=== PATIENT | female | born 1955 | race Caucasian/White ===

== ENCOUNTER 2017-11-14 06:39 | Day surgery (SDC) | payer BC ==
[2017-11-07 12:39] VITALS: BMI 23.8
[2017-11-14 07:25] LABS: BASO # 0.09 K/mm3 (0.0-2.0); BASO % 1.5 % (0.0-3.0); EOS # 0.2 (0.0-0.7); EOS % 3.1 % (1.5-5.0); GRAN # 2.38 (1.4-6.5); GRAN % 40.8 % (50.0-68.0); HEMOGLOBIN 14.1 g/dL (12.0-16.0); LYMPH # 2.8 (1.2-3.4); LYMPH % 47.1 % (22.0-35.0); MEAN CELL VOLUME 94.7 fl (80.0-105.0); MEAN CORPUSCULAR HEMOGLOBIN 32.8 pg (25.0-35.0); MEAN CORPUSCULAR HGB CONC 34.6 g/dl (31.0-37.0); MEAN PLATELET VOLUME 9.1 fl (7.0-11.0); MONO # 0.4 (0.1-0.6); MONO % 7.5 % (1.0-6.0); RBC 4.3 10^6/uL (3.5-6.1); RED CELL DISTRIBUTION WIDTH 12.2 % (11.5-14.5); WHITE BLOOD COUNT 5.8 10^3/ul (4.5-11.0)
[2017-11-14 07:28] VITALS: RESP 18
[2017-11-14 07:33] LABS: INR 0.96 (0.93-1.08); PARTIAL THROMBOPLASTIN TIME 28.8 Seconds (25.1-36.5)
[2017-11-14] MEDS ORDERED: Iodixanol 320 MG/ML 200 ML BOTTLE IV ONE (07:48)
[2017-11-14] MEDS ORDERED: Nitroglycerin 50mg in D5W 50 MG/250 ML BOTTLE IV ONE (07:48)
[2017-11-14] MEDS ORDERED: Iodixanol 320 MG/ML 100 ML BOTTLE IV ONE (07:48)
[2017-11-14] MEDS ORDERED: Lidocaine 2% Inj (20ml) ONE (07:48)
[2017-11-14] MEDS ORDERED: Phenylephrine 10 mg/ml Inj ONE (07:48)
[2017-11-14] MEDS ORDERED: Iohexol 350mgl/ml 50 ML ONE (07:48)
[2017-11-14 08:04] LABS: BLOOD UREA NITROGEN 15 mg/dL (7-21); CALCIUM 9.4 mg/dL (8.4-10.5); GFR AFRICAN-AMERICAN > 60; GFR NON-AFRICAN AMERICAN > 60
[2017-11-14] MEDS ORDERED: Midazolam 2 MG/2 ML VIAL ONE ×2 (08:08→08:15)
[2017-11-14] MEDS ORDERED: Sodium Chloride 0.9% 1,000 ML IV SCH (08:45)
[2017-11-14 09:03] VITALS: TEMP 98
--- NOTE | 2017-11-14 10:01 | CARD ---
APPROVED REPORT Date of service: 11/14/2017 EKG Measurement Heart [id number] <Conclusion> Sinus bradycardia Nonspecific T wave abnormality Abnormal ECG
[2017-11-14 10:34] VITALS: O2SAT 99
--- NOTE | 2017-11-14 12:48 | CARDCATH ---
PROCEDURE DATE: 11/14/2017 HISTORY: The patient is a 62-year-old woman who presents with anxiety, palpitations and intermittent chest pain. A stress test revealed ischemia in the anterior apical septal regions. A cardiac catheterization was recommended. PROCEDURE: Left heart catheterization with coronary arteriography and left ventriculogram. The right femoral artery was cannulated with a 6-Nepali sheath. There were no complications. I performed moderate sedation, which included the presence of an independent trained observer that assisted in monitoring the patient's level of consciousness and physiologic status. After administration of Versed and fentanyl, my intra service time was 15 minutes. The findings on catheterization revealed a left ventricle that contracted normally. Estimated ejection fraction was 60-65%. Her coronary anatomy revealed a right dominant circulation. The RCA revealed mild intimal irregularities without severe significant stenoses. The left main artery was unremarkable. The LAD and diagonal vessels revealed intimal irregularities without significant stenoses. The circumflex artery and obtuse marginal branch revealed diffuse intimal irregularities. In the proximal portion of the first obtuse marginal branch, there was a 50-60% stenoses noted. The patient tolerated the procedure well. Angio-Seal was used to close the femoral artery site. The patient tolerated the procedure well. In summary, the procedure revealed a 50-60% stenoses in the proximal portion of the first obtuse marginal branch which is a small vessel. The rest of her coronary anatomy revealed intimal irregularities without critical lesions. LV function is normal. Given these findings, the patient will need to be on a daily baby aspirin as well as cardiac risk reduction program. Dago Tellez MD
[2017-11-14 15:02] VITALS: BP 127/68; PULSE 60
== END 2017-11-14 15:05 | disposition home or self-care (01) ==
LOC: CATH 06:39
PROVIDERS: ATTEND Internal Medicine Cardiovascular Disease
DX: I25.10 Atherosclerotic heart disease of native coronary artery without angina pectoris (principal); I10 Essential (primary) hypertension; E78.00 Pure hypercholesterolemia, unspecified; F41.9 Anxiety disorder, unspecified
CPT/HCPCS: 36415; 80048; 85025; 85610; 85730; 86850; 86900; 93005; 93458; 99152; C1760; C1769; C1894; J1644; J2250; J3010; J7030; Q9966